=== PATIENT | female | born 1940 | race Caucasian/White ===

== ENCOUNTER 2020-09-04 16:10 | Inpatient (IN) | payer OTHER ==
[~2020-09-04] VITALS: Ht 170.2 cm; Wt 59.0 kg
--- NOTE | ~2020-09-04 | HC ---
[facility] [place] [address] CONSULTATION Name: JOEL HOWARD Room #: 249-P ADM IN M.R.#: [id number] Admission: 09/04/20 Attend Phys: Norberto Nguyen MD Discharge: Date of : 38 Report #: [id number] THIS REPORT FOR: cc: Aj Kapadia MD, Mark S. MD Khosla, Parveen K. MD ~ DATE OF SERVICE: 09/06/2020 HISTORY OF PRESENT ILLNESS: This is an 80-year-old female patient who was evaluated by me for altered mental status. The patient just had a pacemaker put in and she does not think there is much memory problem, but she was admitted with increased confusion, fatigue and lightheadedness. She gives a history that she has diarrhea. This is going on for a few months. Her appetite was poor. Here, she feels better. She had a pacemaker put in because she was bradycardic. She was hypertensive. She is on pain medications. She says she follows up with Dr. Kapadia for lupus. She has a history of breast cancer. There is some mention of seizure in this patient. She did not say anything about it and I will try to reach the family. She is not on any seizure medication. She had elevated troponin when she came in. She has a history of hypothyroidism. This was a relevant 14-point review of system. PAST MEDICAL HISTORY: Positive for diarrhea, but I am not sure whether that was the cause of the problem because the patient also has bradycardia. FAMILY HISTORY: According to her is negative for stroke. SOCIAL HISTORY: She says she does not drink any alcohol. PHYSICAL EXAMINATION: The patient's examinations indicate she is alert, she is responsive, she can follow simple commands, but her memory is poor. I am not sure what her baseline is. Cranial nerve and neuromuscular examination as far as it could be done looks unremarkable. I could not examine the left arm because she has a pacemaker there. I could not look at the fundus. There is no meningeal sign. Cardiac examinations appear unremarkable. No respiratory difficulty was noticed. There is no edema. Her hearing and vision looks adequate. Temperature is 97.1, pulse is 92, blood pressure is 125/74. LABORATORY DATA: WBC count is 7.9. Blood workup, TSH was unremarkable. DIAGNOSTIC DATA: She had a CT scan of the head, which was reviewed and was unremarkable. IMPRESSION AND PLAN: I suspect her symptoms were because of her diarrhea as [facility] [address] [place] [address] CONSULTATION Name: JOEL HOWARD Room #: 249-P [facility] IN .R.#: [id number] Admission: 09/04/20 Attend Phys: Norberto Nguyen MD Discharge: Date of : 39 Report #: [id number] well as bradycardia. I will suggest continue to work that one up. I will try to contact some family about her seizures and if she does have a prior history of a seizure, I will suggest not to give her tramadol. Thank you very much for this referral, but I am not certain about history and I need to call the son and we will try to call him. More than 50 minutes of time was spent taking care of this patient today and majority was spent in counseling and coordinating. By: [id number] Olman Ledesma MD /nt
--- NOTE | ~2020-09-04 | EMS ---
[address] [address] EMS Patient Care Report Name: JOEL HOWARD Room #: REG Irma#: [id number] Admission: 09/04/20 Attend Phys: Discharge: Date of : 39 Report #: [id number] THIS REPORT FOR: //name// Report Transmitted: 09/04/2020 16:27 EMS Care Summary [facility] MED-ACT Incident 124 @ 09/04/2020 15:24 Incident Location [address] [place] [address] Patient JOEL HOWARD Female, 80 Years 1940 Patient Address [address] [place] [address] Patient History Hypertension (HTN), Patient Allergies Codeine,Penicillin allergy,Cephalexin,Hydrocodone,Sulfa,Keflex,Fentanyl,Meperidine, Patient Medications Meloxicam, Triamterene, Topiramate, Gabapentin, Estradiol, Tramadol, Chief Complaint not acting herself Disposition Transported No Lights/[place] Dispatch Reason Unconscious/Fainting Transported To [facility] Narrative Upon EMS arrival pt. was found sitting in her chair in front living room of her [address] [address] EMS Patient Care Report Name: JOEL HOWARD Room #: CINTHIA Solis#: [id number] Admission: 09/04/20 Attend Phys: Discharge: Date of : 39 Report #: [id number] apartment, in the care of OFD. When [id number] arrived on scene in parking lot, we were met by social science manager at [facility] for [facility]. wash house worker stated that pt. rarely comes out of her apartment but social science manager was hoping we could talk pt. into going to the hospital. wash house worker has noticed pt. displaying increased confusion over the past several days. wash house worker also states that pt. family has noticed this as well. EMS was able to contact pt. son on the phone. Son stayed that in the past pt. has unintentionally OD on her medications. After explaining to the son that pt. HR was low, but all her other VS were stable, he felt that she may have OD again. It was also expressed that she seemed confused about certain things. Talking to pt. she states that she hasn't taken her medication, any of them, for a few days now. Pt. had pill bottles all over her apartment. It was asked if she had any type of pill organizer or calendar, or what her process was to know what pills she had taken or needs to take every day. Pt. thought for a really long time, and she said, " I don't think I have a process". Pt. told EMS that she has had chronic diarrhea for months, her son also confirmed this. Pt. also told EMS that she doesn't eat much most days. She said she only eats when she is hungry but can't remember when she last ate. (there was plenty of food in her kitchen). So in general conversation EMS could see that pt. seemed confused ( like when asked if she got a COVID vaccine, she said yes, and then when someone else asked her she said she didn't know) and pt. even admitted to being confused about certain things. She was able to answer all demographic questions appropriate and said who the president was, and what month it was along with what the name of the facility she lived in was. Pt. denied any pain, weakness, difficulty breathing, chest pain, dizziness, fever, cough, n/v, feeling lightheaded, or having a headache or blurred vision. Pt. and son requested transport to [facility]. Pt. transported without incident. EMS monitored her HR, and it remained very consistent at 38-40. Pt. had no noted changes otherwise and remained stable for EMS. Care released to ER staff room 12. Initial Vitals @15:38BP: 186/60,SpO2: 91, @15:37P: 37,CO: 0,SpO2: 97,CO Suspected: false @15:32P: 37,SpO2: 94, @15:48P: 38, @15:58BP: 177/61,SpO2: 95, @15:50BP: 200/151, @16:05P: 37,R: 14,BP: 154/58,Pain: 0/10,Glucose: 91,SpO2: 96, @PTAP: 38,R: 14,BP: 180/78,Pain: 0/10,Temp: 97.2F,SpO2: 98, Assessments @15:32MENTAL:Confused,Person Oriented,Time Oriented,Place [address] [address] EMS Patient Care Report Name: HOWARDJOEL R Room #: REG Irma#: [id number] Admission: 09/04/20 Attend Phys: Discharge: Date of : 39 Report #: [id number] Oriented,SKIN:HEENT:Head/Face: No Abnormalities,Neck/Airway: No Abnormalities,LUNG SOUNDS:General: No Abnormalities,ABDOMEN:General: No Abnormalities,PELVIS//GI:No Abnormalities,EXTREMITIES:Capillary Refill: Right Upper: < 2 Sec,Left Arm: No Abnormalities,Right Arm: No Abnormalities,Left Leg: No Abnormalities,Right Leg: No Abnormalities,PULSE:Radial: 2+ Normal,NEURO:No Abnormalities, Impression Cardiac arrhythmia/dysrhythmia Procedures @15:3712-Lead ECGSucceeded@15:32ALS AssessmentResponse: UnchangedSucceeded@PTASurgical Mask on Patient@15:40Saline Lock 10cc (18 ga) Site: Hand-RightResponse: UnchangedSucceeded Timeline 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,Surgical Mask on Patient, 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,BP: 180/78 M,PULSE: 38,RR: 14 R,SPO2: 98 Ox,ETCO2: ,BG: ,PAIN: 0,GCS: , 15:22,Call Received 15:22,Psap Call 15:24,Dispatched 15:24,En Route 15:29,On Scene 15:31,At Patient 15:32,BP: / M,PULSE: 37,RR: R,SPO2: 94 Ox,ETCO2: ,BG: ,PAIN: ,GCS: , 15:32,ALS Assessment,Response: UnchangedSucceeded, 15:37,12-Lead ECG,Succeeded, 15:37,BP: / M,PULSE: 37,RR: R,SPO2: 97 Ox,ETCO2: ,BG: ,PAIN: ,GCS: , 15:38,BP: 186/60 M,PULSE: ,RR: R,SPO2: 91 Ox,ETCO2: ,BG: ,PAIN: ,GCS: , 15:40,Saline Lock 10cc 18 ga Site: Hand-Right,Response: UnchangedSucceeded, 15:48,BP: / M,PULSE: 38,RR: R,SPO2: Ox,ETCO2: ,BG: ,PAIN: ,GCS: , 15:50,BP: 200/151 M,PULSE: ,RR: R,SPO2: Ox,ETCO2: ,BG: ,PAIN: ,GCS: , 15:50,Depart Scene 15:58,BP: 177/61 M,PULSE: ,RR: R,SPO2: 95 Ox,ETCO2: ,BG: ,PAIN: ,GCS: , 16:05,BP: 154/58 M,PULSE: 37,RR: 14 R,SPO2: 96 Ox,ETCO2: ,B,PAIN: 0,GCS: , 16:06,At Destination 16:26,Call Closed Disclaimer v1.1 Copyright 2020 [employer] This EMS Care Summary contains data elements from the applicable legal record (which may be displayed differently). It is designed to provide pertinent information for the following purposes: continuity of care, clinical quality, and state data reporting. The complete legal record is available to ED staff and administrators of the receiving hospital in [employer] Patient Tracker. All data is provided "as is."
[~2020-09-04 16:10] MED LIST: ACIDOPHILUS1 EACH PO; APAP650 PO; CHROMIUM PIC1000 MCG PO; CLEOCIN HCL150 MG PO; CO Q-10100 MG PO; DAIRY RELIE9000 UNIT PO; DHEA50 MG PO; ESTRACE2 MG PO; FISH OIL 1,001000 M2 PO; GINKGO BILOBA60 M1 PO; HARD NAILS2500 MCG PO; IBUPROFEN 400400 M2 PO; IBUPROFEN200 M1 PO; LEVOTHYROXINE 0.15MG PO; MAXZIDE-25 MG1 EACH PO; MEDROL DOSPAK21 TA1 PO; MOBIC15 MG PO; MORPHINE SULFAT15 M3 PO; NEURONTIN 400400 M1 PO; PERCOCET 5-3251 EACH PO; POTASSIUM CHLO10 MEQ PO; SUPER B COMPLE150 MG PO; SUPER CALCIUM600 MG PO; TOPAMAX 100 MG100 MG PO; TRAMADOL 50 MG50 MG PO; VITAMIN D1000 UNI2 PO; VITAMIN E400 UNIT PO; WOMEN'S DAILY1 EACH PO; XANAX 0.25 MG0.25 MG PO
[2020-09-04 16:11] VITALS: BP 181/51
[2020-09-04 16:36] LABS: ABSOLUTE NEUTROPHILS 6.2 thou/uL (1.4-8.2); EOSINOPHILS 0.8 % (0.0-3.0); HEMOGLOBIN 14.7 gm/dL (12.0-15.0); LYMPHOCYTES 12.9 % (24.0-44.0); MCH 33.1 pg (26.0-34.0); MCHC 33.3 g/dL (28.0-37.0); MCV 99.2 fL (80.0-100.0); MONOCYTES 6.6 % (1.0-8.0); PLATELET COUNT 159 thou/uL (150-400); POLYS 78.7 % (36.0-66.0); RBC 4.43 mil/uL (4.20-5.00); RDW 13.4 % (10.5-14.5); WBC 7.9 thou/uL (4.0-11.0)
[2020-09-04 16:46] LABS: ANION GAP 11 mmol/L (7-16); BUN 23 mg/dL (7-18); CALCIUM 9.4 mg/dL (8.5-10.1); CHLORIDE 107 mmol/L (98-107); CO2 21 mmol/L (21-32); GLUCOSE 95 mg/dL (74-106); POTASSIUM 3.6 mmol/L (3.5-5.1); SODIUM 139 mmol/L (136-145)
[2020-09-04 16:49] LABS: URINE BLOOD 3+ (Negative); URINE CLARITY CLEAR; URINE COLOR YELLOW; URINE GLUCOSE-RANDOM* NEGATIVE (Negative); URINE KETONES 1+ (Negative); URINE LEUKOCYTES-REFLEX NEGATIVE (Negative); URINE NITRITE-REFLEX NEGATIVE (Negative); URINE PROTEIN (DIPSTICK) 3+ (Negative); URINE SPECIFIC GRAVITY >= 1.030 (1.005-1.035); URINE UROBILINOGEN 0.2 E.U./dl (0.2-1.0)
[2020-09-04 16:54] LABS: ICTOTEST (BILI CONFIRMATORY) Negative (Negative); URINE BILIRUBIN NEGATIVE (Negative)
[2020-09-04 16:55] LABS: ALBUMIN 3.6 g/dL (3.4-5.0); DIRECT BILIRUBIN 0.1 mg/dL (<0.1-0.2); MAGNESIUM 2.1 mg/dL (1.8-2.4); PHOSPHORUS 2.7 mg/dL (2.6-4.7); SALICYLATE < 2.8 mg/dL (2.8-20.0); SGOT 26 U/L (15-37); SGPT 25 U/L (14-59); TOTAL BILIRUBIN 0.9 mg/dL (0.2-1.0); TOTAL PROTEIN 6.9 g/dL (6.4-8.2); TROPONIN-I 0.43 ng/mL (<0.06)
[2020-09-04 17:06] LABS: AMP/METHAMP Negative (Negative); BACTERIA-REFLEX 1-9 Few /HPF (None Seen); BARBITURATES Negative (Negative); BENZODIAZEPINES Negative (Negative); CASTS None Seen /LPF (None Seen); COCAINE Negative (Negative); CRYSTALS None Seen /LPF (None Seen); METHADONE Negative (Negative); MUCUS 4-6 Moderate strn/LPF (None Seen); OPIATES POSITIVE (Negative); PCP Negative (Negative); SQUAMOUS 4-10 Moderate /LPF (0-3); URINE RBC 3-10 Few /HPF (NONE SEEN); URINE WBC-REFLEX >25 Many /HPF (0-5)
[2020-09-04 19:52] LABS: CHOLESTEROL 199 mg/dL (<200); HDL CHOLESTEROL 46 mg/dL (>40); LDL CHOLESTEROL 138 mg/dL (<100); TC:HDL 4.3 Ratio (Not establshd); TRIGLYCERIDE 78 mg/dL (<150); TROPONIN-I 0.46 ng/mL (<0.06); VLDL 16 mg/dL (<40)
[2020-09-04 21:47] VITALS: BP 177/80
[2020-09-04 22:45] VITALS: BP 160/46
[2020-09-05] VITALS (13 sets, daily range): BP systolic 106–180; BP diastolic 38–73
--- NOTE | 2020-09-05 03:41 | NUR ---
ASSESSMENTS CHARTED, MEDS CHARTED GIVEN. PATIENT ARRIVED FROM ED AT 2200. PLEASANTLY CONFUSED. UNABLE TO GIVE ACCURATE INFORMATION DURING ADMISSION. HAD BAG FULL OF MEDS. PLACED IN PATIENT HOME MED BAGS AND SENT TO PHARMACY. [facility]. VERY UNSTEADY ON HER FEET. UNABLE TO TELL ME WHAT MEDS SHE TAKES OR WHEN. BLOOD PRESSURE HIGH, HYDRALAZINE GIVEN. CT OF HEAD, ABDOMEN TAKEN. FALL PRECAUTIONS IN PLACE DURING SHIFT
--- NOTE | 2020-09-05 07:44 | EKG ---
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 : 1940 Requested By: Vishnu Henley Order Number: [id number] MD: Anthony Cherry Measurements Intervals [place] Rate: 36 P: 22 OR: 257 QRS: -70 QRSD: 143 T: 90 QT: 550 QTc: 426 Interpretive Statements Sinus bradycardia type II heart block Prolonged OR interval Right bundle branch block LVH with IVCD and secondary repol abnrm No previous ECG available for comparison Electronically Signed On 09-05-2020 7:44:30 CDT by Anthony Cherry [email or web address] <ELECTRONICALLY SIGNED> By: Anthony Cherry MD, [facility] 09/05/20 0744 1405 161 Anthony Cherry MD, [facility] /EPI
[2020-09-05 09:30] LABS: INR 1.14; PROTIME 12.4 Seconds (10.5-12.1)
--- NOTE | 2020-09-05 11:37 | 2DMMODE ---
[facility] [place] [address] 2 D/M-MODE ECHOCARDIOGRAM Name: JOEL HOWARD Tomeka Room #: 217-P ADM IN M.R.#: [id number] Admission: 09/04/20 Attend Phys: Norberto Nguyen MD Discharge: Date of : 39 Report #: [id number] THIS REPORT FOR: cc: Aj Kapadia MD, Mark S. MD Lundgren, Craig H. MD [facility] ~ APPROVED REPORT Study performed: 09/05/2020 08:26:25 EXAM: Comprehensive 2D, Doppler, and color-flow Echocardiogram Patient Location: Bedside Room #: 217 Status: routine BSA: 1.65 HR: 39 bpm BP: 170/50 mmHg Rhythm: Type II AV block Other Information Study Quality: Adequate Indications Bradycardia 2D Dimensions RVDd: 29.91 mm IVSd: 8.28 (7-11mm) LVOT Diam: 20.84 (18-24mm) LVDd: 40.50 mm PWd: 10.27 (7-11mm) Ascending Ao: 35.66 (22-36mm) LVDs: 22.97 (25-40mm) Aortic Root: 25.02 mm IVC: 18.00 mm Volumes Left Atrial Volume (Systole) Single Plane 4CH: 47.30 mL Single Plane 2CH: 42.83 mL LA ESV Index: 30.00 mL/m2 Aortic Valve AoV Peak Mario.: 1.67 m/s AO Peak Gr.: 11.09 mmHg LVOT Max P.69 mmHg LVOT Max V: 1.29 m/s AMITA Vmax: 2.65 cm2 AI Vmax: 3.79 m/s [facility] [address] [address] 2 D/M-MODE ECHOCARDIOGRAM Name: HOWARDJOEL Tomeka Room #: 217-P [facility] IN [facility]#: [id number] Admission: 09/04/20 Attend Phys: Thor Quintana Discharge: Date of : 39 Report #: [id number] AI Gentry: 1.59 m/s2 AI PHT: 701.74 ms Mitral Valve IVRT: 86.51 ms Pulmonary Valve PV Peak Mario.: 1.43 m/s PV Peak Gr.: 8.15 mmHg Pulmonary Vein P Vein S: 0.68 m/s Tricuspid Valve TR Peak Mario.: 3.31 m/s RAP Estimate: 5.00 mmHg TR Peak Gr.: 43.77 mmHg PA Pressure: 49.00 mmHg Left Ventricle The left ventricle is normal size. There is normal LV segmental wall motion. There is normal left ventricular wall thickness. The left ventricular systolic function is normal. The left ventricular ejection fraction is within the normal range. LVEF is 60-65%. This study is not technically sufficient to allow evaluation of the LV diastolic function. Right Ventricle The right ventricle is normal size. The right ventricular systolic function is normal. Atria The left atrium size is normal. The right atrium size is normal. Aortic Valve Mild aortic valve sclerosis, trileaflet. Mild to moderate aortic regurgitation. There is no aortic valvular stenosis. Mitral Valve The mitral valve is normal in structure. Mild mitral regurgitation. No evidence of mitral valve stenosis. Tricuspid Valve The tricuspid valve is normal in structure. Mild tricuspid regurgitation. PAP is estimated at 50 mmHg. Pulmonic Valve [facility] [place] [address] 2 D/M-MODE ECHOCARDIOGRAM Name: JOEL HOWARD Room #: 217-P [facility] IN M.R.#: [id number] Admission: 09/04/20 Attend Phys: Thor Quintana Discharge: Date of : 39 Report #: [id number] The pulmonary valve is normal in structure. Mild pulmonic regurgitation. Great Vessels The aortic root is normal in size. Mild calcification of the ascending aorta IVC is normal in size and collapses >50% with inspiration. Pericardium There is no pericardial effusion. <Conclusion> The left ventricular systolic function is normal. There is normal LV segmental wall motion. LVEF is 60-65%. Mild aortic valve sclerosis, trileaflet. Mild to moderate aortic regurgitation, no stenosis. The mitral valve is normal in structure. Mild mitral regurgitation. Mild tricuspid regurgitation. Pulmonary artery pressure estimated at 50 mmHg. There is no pericardial effusion. <ELECTRONICALLY SIGNED> By: Anthony Cherry MD, [facility] 09/05/20 1136 1136 1136 Anthony Cherry MD, [facility] /INF
--- NOTE | 2020-09-05 14:09 | NUR ---
pt out of room for pacemaker placement. ot to benedicto in am
--- NOTE | 2020-09-05 15:02 | NUR ---
ASSESSMENT CHARTED. PT ALERT AND ORIENTED THIS AM. DENIED HAVING PAIN OR DISCOMFORT. SB WITH TYPE [address] RIVERS THIS AM. PT OUT OF THE UNIT AT THIS TIME FOR PACEMAKER PLACEMENT.
--- NOTE | 2020-09-05 16:30 | NUR ---
PATIENT TRANSFERRED INTO ICU ROOM 249 VIA BED ON PORTABLE MONITOR FROM PACU AT 1610. PATIENT DRIFTS OFF TO SLEEP BUT IS EASILY AROUSED. ORIENTED TO PERSON ONLY AT THIS TIME. RATES HER PAIN 10/10 BUT THEN FALLS OFF TO SLEEP WITHIN SECONDS. LEFT ARM IMMOBLIZER IN PLACE. PLACED ON BROADCAST PRODUCER UPON ARRIVAL TO ICU. ATTEMPTED TO CALL RADIOLOGY FOR CXR BUT NO ANSWER.
--- NOTE | 2020-09-05 17:07 | NUR ---
P.T. EVAL ON HOLD DUE TO TX TO ICU S/P PACEMAKER PLACEMENT. REQUEST NEW P.T. ORDERS ONCE PT IS DEEMED HEMODYNAMICALLY STABLE AND ABLE TO PARTICIPATE IN P.T. INTERVENTIONS.
--- NOTE | 2020-09-05 20:36 | NUR ---
PATIENT ASSISTED UP TO THE COMMODE AND ABLE TO VOID AT 1830. NO BLEEDING FROM THE RT GROIN SITE. DR TAPIA IN AND UPDATED SON ON THE EVENT THAT OCCURED IN THE IR DEPARTMENT AT 1730. SON VERBALIZED UNDERSTANDING. SON STATES THAT HE FEELS THAT HIS MOTHER WILL NEED MORE ASSISTANCE WHEN DISCHARGED OTHER THAN THE [facility] STAT[facility] WHERE SHE PRESENTLY RESIDES.
[2020-09-06] VITALS (14 sets, daily range): BP systolic 123–143; BP diastolic 55–90
--- NOTE | 2020-09-06 06:00 | NUR ---
pt awake and alert. vss up to commode to void. lungs clear. left shoulder immobilizer intact. left chest PPM INTACT WITH CLEAR DERMABOND DSG PT ATE ICE CREAM THIS AM AND NOW READY FOR BKF. PROGRESSING TOWARD GOALS
--- NOTE | 2020-09-06 07:04 | NUR ---
RECEIVED OT ORDERS WHILE PATIENT WAS ON CCU. PATIENT WENT FOR A PACEMAKER PLACEMENT THEN ADMITTED TO ICU. WILL NEED NEW ORDERS ONCE ABLE TO PARTICIPATE WITH THERAPY.
--- NOTE | 2020-09-06 11:29 | NUR ---
RD consult. Admit with NSTEMI, AMS, bradycardia and s/p pacemaker placement. Visit this am, pt reports had excellent breakfast and looking forward to lunch. Appetite is good. Thin body frame, put pt states no significant wt loss. Does not have dentures with her, so on [facility] altered chopped diet. No hx diabetes so discontinue carb control diet restriction. BG 80-124
--- NOTE | 2020-09-06 11:30 | NUR ---
PATIENT ALERT AND ORIENTED BUT FORGETFUL. SITS UP IN THE BED AND ROCKS BACK AND FORTH. UP TO THE CHAIR FOR BREAKFAST AND TO THE COMMODE EARLIER TODAY. VITALS STABLE. PACEMAKER LEFT CHEST WITH DERMABOND AND IMMOBILILZER LUE. SON CAME TO VISIT THIS MORNING AND WAS UPDATED. PATIENT HAS TRANSFER ORDERS TO CCU AND WILL TRANSFER WHEN ROOM IS AVAILABLE.
--- NOTE | 2020-09-06 14:55 | NUR ---
Chart review. case opened. Discussed during los and unite rounds. CM visited with pt at bedside, A & o x 3, pleasant with some forgetfulness. She lives at [facility], she cook's manage own medication- not correctly, has cane. Has vehicle. [facility] in past. per malik. Cm visited with son's rose and patrick via phone call, question about if GI going to she her about colon problems she had for 6 months now. Will want to look into [facility] and will need dr order for that per son rose. Education on acute and skilled rehab, , [place] vs [place]. Will cont following as needed for dc needs.
[2020-09-07] VITALS (7 sets, daily range): BP systolic 127–186; BP diastolic 73–127
--- NOTE | 2020-09-07 11:30 | NUR ---
Son rose her for visit and had question on dcp. He still wants to talk with hospitalist. CM passed on information to , she going to call son's. Son rose wants to take home her medication that was in her black bag when EMS brought her in here. CM spoke with inpt pharm and they have her home meds to sent home with son. She will need assist with her medication at home. We already have arnoldo with [facility] helping with that, she wanted to go to [facility]. Per MD, 5 n eval for therapy. PT/OT eval orders put im and therapy will see her today. CM visited with son rose for long time and other brother on phone call. Education on acute rehab vs snf.provided [employer] snf list, senior blue book. Will need insurance auth from [employer] for acute and or skilled rehab. No anticipated dc unless [employer] give auth over the weekend. CM left message for [facility] to see if have bed open for skilled and [facility]. New order for 5n to eval for acute rehab. Will cont following as needed for dc needs.
--- NOTE | 2020-09-07 19:46 | NUR ---
PATIENT CCU STATUS. MENTATION CHANGES THROUGH OUT THE DAY. ALERT TO SELF ALWAYS BUT HAS EPISODES OF CONFUSION/FORGETFULNESS. NOT IMPULSIVE. DR. CHEEMA NOTED FORGETFULNESS AND STATES PATIENT NEEDS PLACEMENT UPON DISCHARGE. PATIENT MEDICALLY STABLE AND READY FOR DISCHARGE. CASE MANAGEMENT FOLLOW FOR PLACEMENT. 5N CONSULT. PATIENT UP TO CHAIR THROUGH OUT THE DAY. LEFT CHEST INCISION SITE OPEN TO AIR. PATIENT COMPLAINS OFR SORENESS TO THE AREA. PRN PAIN MEDICATION GIVEN X1. LEFT ARM IMMOBILIZER REMOVED BY EP PHYSICIAN. PATIENT TRANSFERRED TO CCU ROOM 204. REPORT GIVEN TO YANIRA GREGORY RN. PLACED ON [facility]. SET UP PHONE FOR PATIENT TO SPEAK WITH SON, AWARE OF TRANSFER AND NEW ROOM.
[2020-09-08 00:06] VITALS: BP 180/83
[2020-09-08 06:09] VITALS: BP 179/80
[2020-09-08 08:14] VITALS: BP 177/118
[2020-09-08 11:15] VITALS: BP 153/93
--- NOTE | 2020-09-08 15:08 | NUR ---
ASSUMED CARE SHIFT CHANGE. VSS BP ELEVATED PHYSICIANS AWARE, MEDS ADMINISTERED. INCISION SITE CDI, REDNESS NOTED. PT C/O PAIN INCISION SITE, MANAGED WITH PO PAIN MEDS. VPACED MONITOR. DENIES SOB/CP. UP WITH ASSIST MOSES WELL. PLAN FOR REHAB ONCE MEDICALLY STABLE. CONT POC. WILL PASS REPORT TO RN.
[2020-09-08 15:32] VITALS: BP 160/113
--- NOTE | 2020-09-08 17:50 | NUR ---
ASSUMED CARE AT 1600. PT VSS WNL. V-PACED ON MONITOR. PT UPDATED AND EDUCATED ON CONDITION AND POC. PT SLOWLY PROGRESSING TOWARDS POC.
[2020-09-08 19:48] VITALS: BP 145/92
[2020-09-09 03:50] VITALS: BP 138/81
--- NOTE | 2020-09-09 06:16 | NUR ---
complaining of stomach pain this morning. she ates some yogurt and pudding and this increased the pain. gave her a hydrocodone for the pain. this has not helped. she is anxious, gave the xanax. she is resting at this time trying to relax.
[2020-09-09 07:28] VITALS: BP 178/94
--- NOTE | 2020-09-09 10:38 | EKG ---
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1940 Requested By: Mera Zazueta Order Number: [id number] MD: Anthony Cherry Measurements Intervals [place] Rate: 87 P: -22 MD: 190 QRS: -72 QRSD: 167 T: 124 QT: 463 QTc: 557 Interpretive Statements Atrial-sensed ventricular-paced rhythm No further analysis attempted due to paced rhythm Compared to ECG 09/04/2020 16:15:42 Pacing is now present Electronically Signed On 09-09-2020 10:37:48 CDT by Anthony Cherry [email or web address] <ELECTRONICALLY SIGNED> By: Anthony Cherry MD, [facility] 09/09/20 1037 7 Anthony Cherry MD, [facility] /EPI
[2020-09-09 11:17] VITALS: BP 158/83
[2020-09-09 15:40] VITALS: BP 153/90
--- NOTE | 2020-09-09 19:38 | NUR ---
ASSUMED CARE SHIFT CHANGE.VSS BP ELEVATED MEDS GIVEN. INCISION SITE REMAINS CDI. VPACED. UP WITH ASSIST, WEAK. C/O PAIN IN STOMACH, PAIN MED GIVEN, PT APPEARED TO BE VERY ANXIOUS, XANAX GIVEN PER ORDERS. PHYSICIAN NOTIFIED OF BELLY PAIN, ORDERS RECEIVED. PLAN FOR 5NORTH AT DISCHARGE. CONT POC. REPORT PASSED TO COREY VERA.
[2020-09-09 19:47] VITALS: BP 147/80
[2020-09-10 05:15] VITALS: BP 149/79
[2020-09-10 07:42] VITALS: BP 159/88
--- NOTE | 2020-09-10 07:46 | NUR ---
PT GIVEN PAIN MEDS AND ANXIETY MEDS FOR C/O ABD PAIN, L SHOULDER INCISION REMAINS CDI, UP WITH ASS'T TO BSC VERY WEAK, VSS, WILL CON'T TO MONITOR.
--- NOTE | 2020-09-10 10:20 | NUR ---
Message from son's. [facility] has a waiting list for skilled rehab. Per son rose 2nd choice would be [facility]. CM sent snf referral, will need auth from [facility] if [facility] can accept.
[2020-09-10 11:33] VITALS: BP 178/113
--- NOTE | 2020-09-10 13:46 | NUR ---
ON-GOING ASSESSMENT: CM REVIEWED CHART. CM SPOKE WITH [facility] AND THEY REQUEST REFERRAL BE SENT TO [phone]. CM SENT REFERRAL TO [facility] ADMISSIONS REQUESTING THEM TO REVIEW AND SUBMIT FOR AUTH IF THEY ARE ABLE TO ACCEPT. CM AWAITING INPUT FROM NATHANAEL AT THIS TIME.
--- NOTE | 2020-09-10 17:34 | NUR ---
PT UP IN BED, NO DISTRESS, NO SOA, SPEAKING IN CLEAR AND COMPELTE SENTENCES, O2 SHOWS 82--87%, PLACEED ON 2L NC, O2 UP TO 93%.
[2020-09-10 19:33] VITALS: BP 148/92
--- NOTE | 2020-09-10 21:07 | NUR ---
ASSUMED CARE SHIFT CHANGE.VSS. C/O ABDOMINAL PAIN, WHEN ASKED WHAT MAKES PAIN WORSE PT STATED WHEN PEOPLE COME POKE MY ARMS. PHYSICIAN NOTIFIED, XANAX GIVEN PRIOR TO PT GETTING IV PLACED. PT APPEARS TO BE ANXIOUS WHEN C/O PAIN, ABDOMENT PALPATED, NO TENDERNESS. ZOFRAN GIVEN AT PT REQUEST. INCISION SITE CDI. FALL PREC IN PLACE, CALLS WITH NEEDS. AT APPROX 1600 BENCH CARPENTER TOOK VITALS ON PT AND REPORTED TO THIS RN OF LOW O2 SAT. O2 APPLIED, SATS INCREASED. PHYSICIAN NOTIFIED, ORDERS RECEIVED. CXR-REFER TO RESULTS. PHYSICIAN NOTIFED, NO ORDERS RECEIVED. REPORT PASSED TO NOC RN.
[2020-09-11 05:31] VITALS: BP 141/79
--- NOTE | 2020-09-11 08:16 | NUR ---
PT RESTING QUIETLY WITH O2 SAT MONITOR ALARMING WHEN SHE DROPPED TO LOW 80'S INCREASED O2 TO 4L THRU THE NOC, PRN ANXIETY AND PAIN MEDS GIVEN NEEDED, VSS, UP WITH ASSIST USES CALL LIGHT APPROPRIATLY, WILL CON'T TO MONITOR PER PPOC.
[2020-09-11 08:39] VITALS: BP 183/108
[2020-09-11 12:24] VITALS: BP 172/91
[2020-09-11 13:19] VITALS: BP 113/65
--- NOTE | 2020-09-11 15:21 | NUR ---
CONTACT DR. CHEEMA TO INFORM THAT PT IS BILAT UPPER EXTEMITY LIMB ALER R/T TO HX OF BILAT MASTECTOMY. INSTRUCTED TO HAVE LAB DRAW BLOOD FROM LIMB THAT IT HAS BEEN USING SINCE PATIENT WAS ADMITTED AND PREVIOUS NURSES HAVE NOT ADDRESSED THIS. WILL CONTINUE TO ASSESS.
[2020-09-11 15:32] LABS: HEMATOCRIT 42.3 % (37.0-47.0); HEMOGLOBIN 14.2 gm/dL (12.0-15.0); MCH 33.3 pg (26.0-34.0); MCHC 33.5 g/dL (28.0-37.0); MCV 99.3 fL (80.0-100.0); RBC 4.26 mil/uL (4.20-5.00); RDW 13.1 % (10.5-14.5); WBC 9.8 thou/uL (4.0-11.0)
[2020-09-11 15:51] LABS: CALCIUM 8.7 mg/dL (8.5-10.1); CREATININE 1.2 mg/dL (0.6-1.0); POTASSIUM 3.6 mmol/L (3.5-5.1)
[2020-09-11 15:57] LABS: TROPONIN-I 5.83 ng/mL (<0.06)
[2020-09-11 16:30] VITALS: BP 184/94
--- NOTE | 2020-09-11 16:50 | NUR ---
CARDIOLOGY REPORTS THATPT REFUSES HEART CATH.
--- NOTE | 2020-09-11 17:01 | NUR ---
PT REFUSING CONTINUOS PULSE OX MONITOR. DR. CHEEMA INFORMED.
--- NOTE | 2020-09-11 18:36 | NUR ---
WAS ABLE TO CONVINCE PT TO PUT BACK PULSE OX.
[2020-09-11 20:15] VITALS: BP 158/97
--- NOTE | 2020-09-12 03:59 | NUR ---
PT C/O NOT ENOUGH PAIN CONTROL WITH MEDS RECEIVED ORDER FOR 1 TIME ORDER FOR TORDOL AND AFTER HER NEXT DOSE OF PAIN MEDS SHE STATED SHE HAD MUCH RELIEF AND WAS ABLE TO RELAX, SLEEPING ON AND OFF THE REST OF THE EVENING, USES CALL LIGHT APPROPRIATLY, UP TO BSC WITH ASSIST UNSTEADY AND WEAK, VSS, O2 SATS BETWEEN 90 NAD 95%, CDIFF PENDING, CT OF ABD PLANNED FOR THIS AM. WILL CON'T TO MONITOR PER PPOC.
[2020-09-12 04:45] VITALS: BP 166/75
--- NOTE | 2020-09-12 07:15 | EKG ---
[address] [address] ELECTROCARDIOGRAM REPORT Name: JOEL HOWARD Room #: 204- ADM IN M.R.#: [id number] Admission: 09/04/20 Attend Phys: Norberto Nguyen MD Discharge: Date of : 38 Report #: [id number] [facility] Test Date: 2020-09-11 Test Time: 16:16:04 Pat Name: JOEL HOWARD Department: Room: 204 Gender: F Pie Filler: [id number] : 1940 Requested By: Teresa Maxwell Order Number: [id number] MD: Isacc Johnson Measurements Intervals [place] Rate: 95 P: 248 VA: 122 QRS: -69 QRSD: 166 T: 133 QT: 432 QTc: 543 Interpretive Statements Atrial-sensed ventricular-paced rhythm No further analysis attempted due to paced rhythm Compared to ECG 09/09/2020 06:38:46 No significant changes Electronically Signed On 09-12-2020 7:15:43 CDT by Isacc Johnson [email or web address] <ELECTRONICALLY SIGNED> By: Isacc Johnson MD, [facility] 09/12/20714 15 15 Isacc Johnson MD, [facility] /EPI
[2020-09-12 08:49] VITALS: BP 169/94
[2020-09-12 10:47] LABS: CALCIUM 9.2 mg/dL (8.5-10.1); CREATININE 1.3 mg/dL (0.6-1.0); POTASSIUM 3.3 mmol/L (3.5-5.1)
[2020-09-12 11:14] VITALS: BP 166/90
--- NOTE | 2020-09-12 12:56 | 2DMMODE ---
[facility] [place] [address] [address] 2 D/M-MODE ECHOCARDIOGRAM Name: JOEL HOWARD Room #: 204-P ADM IN M.R.#: [id number] Admission: 09/04/20 Attend Phys: Norberto Nguyen MD Discharge: Date of : 38 Report #: [id number] THIS REPORT FOR: cc: Aj Kapadia MD, Mark S. MD Lammoglia, Francisco J. MD ~ APPROVED REPORT Study performed: 09/12/2020 11:52:50 EXAM: Limited 2D, Doppler, and color-flow Echocardiogram Patient Location: Bedside Room #: 204 Status: routine BSA: 1.78 HR: 84 bpm BP: 169/94 mmHg Rhythm: Pacemaker Other Information Study Quality: Adequate/patient sitting up in bed very short of breath. Indications Limited echo for elevated troponin, CHF. Status post pacemaker on 09/05/20. Complete echo done on 09/05/20 with normal EF. Tricuspid Valve TR Peak Mario.: 2.96 m/s RAP Estimate: 10.00 mmHg TR Peak Gr.: 35.13 mmHg PA Pressure: 45.00 mmHg Left Ventricle The left ventricle is normal size. Regional wall motion abnormalities are noted. Left ventricular systolic function is severely decreased. LVEF is 25-30%. Right Ventricle The right ventricle is normal size. Right ventricle is mildly hypokinetic. Atria The left atrium size is normal. The right atrium size is normal. [facility] [address] [place] [address] 2 D/M-MODE ECHOCARDIOGRAM Name: JOEL HOWARD Room #: 204-P ADM IN M.R.#: [id number] Admission: 09/04/20 Attend Phys: Thor Quintana Discharge: Date of : 38 Report #: [id number] Aortic Valve The aortic valve is normal in structure. Mild to moderate aortic regurgitation. Mitral Valve The mitral valve is normal in structure. Moderate mitral regurgitation. Tricuspid Valve The tricuspid valve is normal in structure. Mild tricuspid regurgitation. Estimated PAP is 45mmHg. Pulmonic Valve Pulmonic valve is not well visualized. Great Vessels IVC is dilated and collapses <50% with inspiration. Pericardium There is no pericardial effusion. Bilateral pleural effusions. <Conclusion> The left ventricle is normal size. Regional wall motion abnormalities are noted. LVEF is 25-30%. The right ventricle is normal size. Right ventricle is mildly hypokinetic. The left atrium size is normal. The right atrium size is normal. The aortic valve is normal in structure. Mild to moderate aortic regurgitation. The mitral valve is normal in structure. Moderate mitral regurgitation. The tricuspid valve is normal in structure. Mild tricuspid regurgitation. Estimated PAP is 45mmHg. Pulmonic valve is not well visualized. There is no pericardial effusion. Bilateral pleural effusions. <ELECTRONICALLY SIGNED> By: David Chilel MD 09/12/20 1255 1255 1255 David Chilel MD /INF
--- NOTE | 2020-09-12 15:04 | NUR ---
Discharge timeframe is pending due to elev trop/hypoxia. Pt on o2 and at times refusing the pulse ox. Pt refusing heart cath. IV lasix for diuresis and therapy. The liason from [facility] was here to visit with the pt today. They can accept pending bed availability and verifying the auth waiver for [employer].
--- NOTE | 2020-09-12 15:44 | NUR ---
FAXED CLINICAL UPDATES AND NEGATIVE COVID RESULT (09/05/20) TO [facility]. WILL CONFIRM WITH ISAMAR/ADMISSIONS THAT THEY RECEIVED. [employer] [facility] P [phone]; FAX [phone]
[2020-09-12 15:54] VITALS: BP 161/97
--- NOTE | 2020-09-12 19:27 | NUR ---
ASSUMED CARE SHIFT CHANGE. VSS. C/O PAIN MANAGED WITH PO PAIN MEDS. PT APPREARED TO BE ANXIOUS THIS SHIFT- PO MEDS GIVEN ORDERED FOR ANXIETY. PT HAD BM THIS SHIFT. CDIFF NEG. CT ABD- REFER TO RESULTS. GI ORDERED PT TO HAVE NG TUBE TO SUCTION, PT REFUSED ADAMENTLY. GI NOTIFIED. REMAINS VPACED MONITOR. UP WITH ASSIST [employer]. PT ON 6L O2, PULM CONSULTED. PT NOT PROGRESSING WELL TOWARD GOALS. SON UPDATED ON POC. REPORT PASSED TO COREY RN.
[2020-09-12 20:12] VITALS: BP 145/87
[2020-09-13 03:14] VITALS: BP 151/82
--- NOTE | 2020-09-13 03:26 | NUR ---
ALERT AND ORIENTED X2 BUT FORGETFUL AND ANXIOUS AT TIMES. UP TO BED SIDE COMMODE WITH NURSING ASSIST X2. PASSING GAS. COMPLAINS OF ABDOMINAL PAIN. SOME RELIEF WITH PASSING GAS SHE REPORTS. ANXIETY MEDS GIVEN TO PT AND TYLENOL FOR COMFORT. LUNGS CLEAR TO DIMINISHED IS ON 6 LITERS NASAL CANULA. CALL LIGHT WITHIN REACH IF NEEDS ASSTANCE PER NURSING.
[2020-09-13 03:59] LABS: CALCIUM 9.3 mg/dL (8.5-10.1); CREATININE 1.1 mg/dL (0.6-1.0)
[2020-09-13 04:44] LABS: POTASSIUM 4.8 mmol/L (3.5-5.1)
[2020-09-13 08:11] VITALS: BP 188/91
[2020-09-13 11:58] VITALS: BP 144/70
--- NOTE | 2020-09-13 14:56 | NUR ---
Nutrition followup: pt continues on CCU S/P NSTEMI, pacemaker placement. Continues to eat well, 50-100% of meals. Weights up 12# from initial weight- unsure of accuracy but no major weight changes reported prior. GI following for chronic abdominal pain, diarrhea. Cdiff negative. Diet clear liquids x 1 day now advanced to regular. Needs Mech chopped due to no dentures-will add. Low nutrition risk.
--- NOTE | 2020-09-13 15:46 | NUR ---
Spoke with [facility] and updated no dc today. They anticipate bed for patient in am. SP with son Akil affirmed cont plan for post acute care. Discussed retirement care and hospice services. They requested phys call. sent message to phys. Hernandez following.
[2020-09-13 15:47] VITALS: BP 127/65
[2020-09-13 19:29] VITALS: BP 103/51
--- NOTE | 2020-09-14 03:26 | NUR ---
PT IS ALERT AND ORIENTED X3 WITH SOME FORGETFULLNESS. PT COMPLAINS OF ABDOMINAL PAIN. PAIN MEDS GIVEN FOR COMFORT AND PT SLEEPING. O2 AT 5 LITERS NASAL CANULA. O2 SATURATION 94 PERCENT. UP TO BEDSIDE COMODE WITH ASSSITANCE PER NURSING. ABDOMEN IS SOFT AND ROUND BOWEL SOUNDS ACTIVE X4. CALL LIGHT WITHIN REACH IF NEEDS ASSISTANCE PER NURSING
[2020-09-14 03:35] LABS: ALBUMIN 3.1 g/dL (3.4-5.0); CALCIUM 9.1 mg/dL (8.5-10.1); CREATININE 1.3 mg/dL (0.6-1.0); POTASSIUM 4.5 mmol/L (3.5-5.1)
[2020-09-14 06:34] VITALS: BP 124/65
[2020-09-14 08:00] VITALS: BP 135/84
[2020-09-14] MEDS ORDERED: NORVASC10 MG PO (11:07)
[2020-09-14] MEDS ORDERED: COREG6.25 MG PO (11:07)
[2020-09-14] MEDS ORDERED: HYOSCYAMINE0.125 M1 PO (11:07)
[2020-09-14] MEDS ORDERED: COZAAR 50 MG TA50 M1 PO (11:08)
[2020-09-14] MEDS ORDERED: HYDROCODON-ACE1 EAC7 PO (11:08)
[2020-09-14] MEDS ORDERED: XANAX 0.25 MG0.25 MG PO (11:09)
[2020-09-14] MEDS ORDERED: DEMADEX20 MG PO (11:09)
[2020-09-14 12:00] VITALS: BP 118/87
--- NOTE | 2020-09-14 12:55 | NUR ---
DISCHARGE ORDERS AND SUMMARY FAXED TO [facility]. FACILITY REQUESTED A COVID TEST LESS THAT [address]/RN TO ORDER. WILL SEND WHEN COMPLETED. WHEELCHAIR VAN ARRANGED AND PROVIDED BY FACILITY FOR 15:30 WITH OXYGEN. NURSING UNIT NOTIFIED. CHART COPY REQUESTE. [facility] P [phone] FAX [phone] M [phone]
--- NOTE | 2020-09-17 08:37 | P ---
[facility] [address] [place] [address] PROCEDURE REPORT Name: JOEL HOWARD Room #: 204-P [facility] IN M.R.#: [id number] Admission: 09/04/20 Attend Phys: Norberto Nguyen MD Discharge: 09/14/20 Date of : 38 Report #: [id number] THIS REPORT FOR: cc: Aj Kapadia MD, Mark S. MD Couchonnal, Luis F. MD ~ PREOPERATIVE DIAGNOSIS: Complete heart block. POSTOPERATIVE DIAGNOSIS: Complete heart block. PROCEDURE PERFORMED: 1. Dual chamber pacemaker implantation. 2. Temporary pacer wire insertion. HISTORY: The patient is an 80-year-old female who presented to the hospital with increased fatigue and was noted to be in complete heart block. She is here for a permanent pacemaker implantation. ANESTHESIA: The patient underwent MAC anesthesia with no anesthesia related complications. DESCRIPTION OF PROCEDURE: The patient's durable power of securities attorney had undergone informed consent prior to the procedure. The patient was brought to the EP laboratory and prior to initiation of the procedure or anesthesia, the patient went from complete heart block to asystole. A code was called and I rushed to the procedure suite. CPR was in progress and the patient was given epinephrine, which resulted in return of heart rate and rhythm and the patient regained consciousness. As such, the procedure started as a code before the actual pacemaker setup had been initiated. Therefore, I called for stat placement of a temporary pacing wire and the patient received additional epinephrine to support her heart rate as I obtained access to the right femoral vein, I placed a 6 [place] short sheath and then I placed a pacing wire into the right ventricle and the pacing threshold was within normal limits. Therefore, now that we had a stable backup rhythm, the patient was then prepped and draped in a standard fashion. She received IV antibiotics and a formal venogram was then performed. She was prepped in a standard fashion. I then injected lidocaine at the left clavicle region and made an incision and a pocket. Access was obtained twice to left axillary vein and leads were positioned in the right atrial appendage and right ventricular apex with adequate pacing and sensing thresholds. These leads were sutured to the prepectoral fascia connected to the device. Tug test performed. Pocket was irrigated with vancomycin and the pocket was closed in two layers and surgical glue was placed to outer skin layer. As I was closing the pocket, the temporary wire was removed and then the sheath was also removed and manual pressure was held. The patient awoke neurologically and hemodynamically intact. No complications and no significant bleeding. The [address] [address] PROCEDURE REPORT Name: JOEL HOWARD Room #: 204-P [facility] IN M.R.#: [id number] Admission: 09/04/20 Attend Phys: Norberto Nguyen MD Discharge: 09/14/20 Date of : 38 Report #: [id number] implanted pacemaker was Medtronic model number W3DR01, serial number [id number], the atrial lead was a 5076, 45 cm, serial number [id number]. The ventricular lead was a 5076, 52 cm, serial number [id number]. The atrial lead demonstrated P-wave of 2.4 millivolts, pacing impedance of 621 ohms, pacing threshold 0.75 volts at 0.4 milliseconds. The RV lead demonstrated R waves of 4.8 millivolts, pacing impedance of 1248 ohms and a pacing threshold of 0.5 V at 0.4 milliseconds. The device was programmed to DDDR 60-130 mode. CONCLUSION: 1. Successful dual chamber pacemaker implantation. 2. Successful implantation of a temporary pacing wire. RECOMMENDATIONS: The patient will be transferred to be monitored in the ICU overnight. <ELECTRONICALLY SIGNED> By: Jordan Cronin MD 09/17/20 0837 0905 [id number] Jordan Cronin MD /nt
== END 2020-09-14 15:57 | DRG 242 ==
LOC: ER 16:10 → 2N 17:56 → ICU 17:56 → EROBS 17:56 → 2N 22:18 → ICU 09-05 14:40 → 2N 09-07 19:48
PROVIDERS: Emergency Medicine; Nurse Practitioner; Nurse Practitioner Adult Health; ADMIT Hospitalist; ATTEND Hospitalist
PROC: 02HK0JZ Insertion of Pacemaker Lead into Right Ventricle, Open Approach (ICD-10-PCS; principal; 2020-09-05)
PROC: 0JH606Z Insertion of Pacemaker, Dual Chamber into Chest Subcutaneous Tissue and Fascia, Open Approach (ICD-10-PCS; principal; 2020-09-05)
PROC: 02H60JZ Insertion of Pacemaker Lead into Right Atrium, Open Approach (ICD-10-PCS; principal; 2020-09-05)
DX: I44.2 Atrioventricular block, complete (principal); I21.4 Non-ST elevation (NSTEMI) myocardial infarction; G93.41 Metabolic encephalopathy; I21.A1 Myocardial infarction type 2; J96.20 Acute and chronic respiratory failure, unspecified whether with hypoxia or hypercapnia; I46.9 Cardiac arrest, cause unspecified; E46 Unspecified protein-calorie malnutrition; E87.1 Hypo-osmolality and hyponatremia; N39.0 Urinary tract infection, site not specified; I16.1 Hypertensive emergency; K21.9 Gastro-esophageal reflux disease without esophagitis; R63.4 Abnormal weight loss; E03.9 Hypothyroidism, unspecified; G40.909 Epilepsy, unspecified, not intractable, without status epilepticus; R53.81 Other malaise; E55.9 Vitamin D deficiency, unspecified; G89.29 Other chronic pain; I11.0 Hypertensive heart disease with heart failure; M47.896 Other spondylosis, lumbar region; I50.9 Heart failure, unspecified; K52.9 Noninfective gastroenteritis and colitis, unspecified; E87.6 Hypokalemia; Z66 Do not resuscitate; Z20.822 Contact with and (suspected) exposure to COVID-19; T50.1X5A Adverse effect of loop [high-ceiling] diuretics, initial encounter; Y92.89 Other specified places as the place of occurrence of the external cause; Z90.13 Acquired absence of bilateral breasts and nipples; Z90.49 Acquired absence of other specified parts of digestive tract; Z90.710 Acquired absence of both cervix and uterus; Z88.6 Allergy status to analgesic agent; Z88.0 Allergy status to penicillin; Z88.2 Allergy status to sulfonamides; Z88.8 Allergy status to other drugs, medicaments and biological substances; Z68.20 Body mass index [BMI] 20.0-20.9, adult; Z85.3 Personal history of malignant neoplasm of breast; Z87.891 Personal history of nicotine dependence
CPT/HCPCS: 10078; 10081; 10203; 62110; 62900; 70005